=== PATIENT | female | born 1980 | race Two or more races ===

== ENCOUNTER 2016-11-16 06:21 | Emergency (ER) | payer SELFPAY ==
[~2016-11-16] VITALS: Ht 154.9 cm; Wt 54.5 kg
[2016-11-16] MEDS ORDERED: MORPHINE SULFATE 4 MG/ML, 1ML ONE (07:50)
[2016-11-16] MEDS ORDERED: ONDANSETRON 2MG/ML, 2ML ONE (07:50)
[2016-11-16 07:57] LABS: HEMATOCRIT 43.2 % (34.6-47.8); HEMOGLOBIN 14.8 g/dL (11.7-16.4); WHITE BLOOD COUNT 10.9 x10^3/uL (3.4-10)
[2016-11-16] MEDS ORDERED: SODIUM CHLORIDE 0.9% 1,000ML IVBOLUS ONE (08:00)
[2016-11-16] MEDS ORDERED: ONDANSETRON 2MG/ML, 2ML IVPush ONE (08:00)
[2016-11-16] MEDS ORDERED: SODIUM CHLORIDE FLUSH 10ML SYR IVF ONE (08:00)
[2016-11-16] MEDS ORDERED: MORPHINE SULFATE 4 MG/ML, 1ML IVPush PRN (08:00)
[2016-11-16 08:07] LABS: ASPARTATE AMINO TRANSFERASE 9 U/L (15-37); BLOOD UREA NITROGEN 8 mg/dL (7-18)
[2016-11-16 11:16] VITALS: BP 113/71
== END 2016-11-16 11:18 | disposition home or self-care (01) ==
LOC: ED 07:17
DX: Z33.1 Pregnant state, incidental (principal); R10.13 Epigastric pain; R10.31 Right lower quadrant pain; K59.00 Constipation, unspecified; R35.0 Frequency of micturition
CPT/HCPCS: 36415; 76700; 76801; 80053; 81003; 83690; 84702; 84703; 85025; 96361; 96374; 96375; 99285; J2405; J7030